=== PATIENT | male | born 1950 | race Hispanic/Latino ===

== ENCOUNTER 2023-02-10 05:47 | Day surgery (SDC) | payer BC ==
[2023-02-08 10:26] VITALS: BP 144/81
[2023-02-08 10:27] LABS: BASOPHILS % (AUTO) 0.7 % (0.0-5.0); EOSINOPHILS % (AUTO) 2.8 % (0.0-8.0); HEMATOCRIT 35.4 % (42-54); LYMPHOCYTES % (AUTO) 32.8 % (21.0-51.0); MEAN CORPUSCULAR HEMOGLOBIN 39.8 pg (27.0-33.0); MEAN CORPUSCULAR HGB CONC 36.4 g/dL (32.0-36.0); MEAN CORPUSCULAR VOLUME 109.3 fL (79-99); MONOCYTES % (AUTO) 9.9 % (3.0-13.0); NEUTROPHILS % (AUTO) 53.4 % (40.0-77.0); PLATELET COUNT (AUTO) 221 K/uL (130-400); RED BLOOD CELL COUNT(AUTO) 3.24 MIL/uL (4.50-6.20); RED CELL DISTRIBUTION WIDTH 14.1 % (11.0-15.5); WHITE BLOOD COUNT (AUTO) 5.7 K/uL (4.8-10.8)
[2023-02-08 10:44] LABS: ALBUMIN 3.8 g/dL (3.5-5.0); CARBON DIOXIDE 30 mmol/L (21-32); CHLORIDE 99 mmol/L (101-111); CREATININE 0.8 mg/dL (0.5-1.5); GLOMERULAR FILTR. RATE CALC 95 mL/min (>90); GLUCOSE,RANDOM 103 mg/dL (70-105); POTASSIUM 4.6 mmol/L (3.5-5.1); SODIUM SERUM 135 mmol/L (136-145); UREA NITROGEN, BLOOD 15 mg/dL (7-18)
[2023-02-08 10:48] LABS: CRP QUANTITATIVE < 2.00 mg/L (0.00-9.0)
[~2023-02-10] VITALS: Ht 177.8 cm; Wt 92.8 kg
[2023-02-10] VITALS (19 sets, daily range): BP systolic 130–147; BP diastolic 68–88
[~2023-02-10 05:47] MED LIST: CEPH250C3 PO; LEVO100C4 PO; MELO-106 PO
[2023-02-10] MEDS ORDERED: LACTATED RINGERS 1000ML 1,000 ML IV ONE (06:11)
[2023-02-10] MEDS ORDERED: CEFAZOLIN SODIUM 2 GM VIAL ONE (06:11)
[2023-02-10] MEDS ORDERED: BUPIVACAINE/PF 0.25% 30ML VIAL IJ ONE (06:43)
[2023-02-10] MEDS ORDERED: FAMOTIDINE 20MG VIAL IV ONE (06:47)
[2023-02-10] MEDS ORDERED: LIDOCAINE PF 100MG/5ML (2%) SYRINGE 5ML ONE (06:59)
[2023-02-10] MEDS ORDERED: GLYCOPYRROLATE 1 MG/5 ML SYRINGE ONE (06:59)
[2023-02-10] MEDS ORDERED: PROPOFOL 10 MG/ML 20ML VIAL IV ONE (06:59)
[2023-02-10] MEDS ORDERED: FENTANYL CITRATE PF 50 MCG/1 ML 5ML AMP IV ONE (07:00)
[2023-02-10] MEDS ORDERED: MIDAZOLAM HCL 1 MG/ML 2ML VIAL ONE (07:00)
[2023-02-10] MEDS ORDERED: ONDANSETRON 4MG INJ ONE (07:21)
[2023-02-10] MEDS ORDERED: ACET-2079 PO (08:16)
== END 2023-02-10 10:00 | disposition home or self-care (01) ==
LOC: DAH 05:47
PROVIDERS: ATTEND Student in an Organized Health Care Education/Training Program
DX: M65.332 Trigger finger, left middle finger (principal); Z20.822 Contact with and (suspected) exposure to COVID-19; E03.9 Hypothyroidism, unspecified; Z79.890 Hormone replacement therapy; Z79.899 Other long term (current) drug therapy
CPT/HCPCS: 82040; 80048; 85025; 84134; 86140; 87426; 36415; 26055; A4663; A4565; A4649; J7120; J3490 ×3; J3010; J2001; J2250; J2704; J2405; J0690; A6223; A5120; A4215; A4223; A4222; A4221

== ENCOUNTER 2023-06-09 05:55 | Day surgery (SDC) | payer OTHER ==
[2023-06-07 10:40] LABS: BASOPHILS # (AUTO) 0.03 K/uL (0.00-0.20); BASOPHILS % (AUTO) 0.4 % (0.0-5.0); EOSINOPHILS # (AUTO) 0.13 K/uL (0.00-0.70); EOSINOPHILS % (AUTO) 1.8 % (0.0-8.0); IMMATURE GRANULOCYTE ABSOLUTE 0.02 K/uL (0-1); LYMPHOCYTES # (AUTO) 1.7 K/uL (1.0-4.8); LYMPHOCYTES % (AUTO) 23.1 % (21.0-51.0); MEAN CORPUSCULAR HEMOGLOBIN 45.7 pg (27.0-33.0); MEAN CORPUSCULAR HGB CONC 39.4 g/dL (32.0-36.0); MEAN CORPUSCULAR VOLUME 115.9 fL (79-99); MONOCYTES # (AUTO) 0.6 K/uL (0.1-1.0); MONOCYTES % (AUTO) 8.1 % (3.0-13.0); NEUTROPHILS # (AUTO) 4.8 K/uL (1.8-7.7); NEUTROPHILS % (AUTO) 66.3 % (40.0-77.0); PLATELET COUNT (AUTO) 214 K/uL (130-400); RED BLOOD CELL COUNT(AUTO) 2.76 MIL/uL (4.50-6.20); RED CELL DISTRIBUTION WIDTH 14.2 % (11.0-15.5); WHITE BLOOD COUNT (AUTO) 7.2 K/uL (4.8-10.8)
[2023-06-07 10:53] LABS: ALBUMIN 3.8 g/dL (3.5-5.0); CREATININE 0.9 mg/dL (0.5-1.5); POTASSIUM 4.4 mmol/L (3.5-5.1)
[2023-06-07 16:46] VITALS: BP 153/70; PULSE 69; RESP 17
[2023-06-09] VITALS (14 sets, daily range): BP systolic 124–145; BP diastolic 55–76; PULSE 52–74; RESP 10–16
[~2023-06-09] VITALS: Ht 177.8 cm; Wt 97.1 kg
[~2023-06-09 05:55] MED LIST changes: +ACET-2079 PO
[2023-06-09] MEDS ORDERED: LACTATED RINGERS 1000ML 1,000 ML IV ONE (06:23)
[2023-06-09] MEDS ORDERED: CEFAZOLIN SODIUM 2 GM VIAL ONE (06:23)
[2023-06-09] MEDS ORDERED: CYCL-309 PO (06:36)
[2023-06-09] MEDS ORDERED: LIDOCAINE PF 100MG/5ML (2%) SYRINGE 5ML ONE (07:23)
[2023-06-09] MEDS ORDERED: MIDAZOLAM HCL 1 MG/ML 2ML VIAL ONE (07:24)
[2023-06-09] MEDS ORDERED: FENTANYL CITRATE PF 50 MCG/1 ML 2ML VIAL ONE (07:24)
[2023-06-09] MEDS ORDERED: PROPOFOL 10 MG/ML 20ML VIAL IV ONE (07:24)
[2023-06-09] MEDS ORDERED: ROCURONIUM 10MG/1ML SYR 10 MG/ML ML ONE (07:24)
[2023-06-09] MEDS ORDERED: ROPIVACAINE 0.5% 5MG/ML 30ML IJ ONE (07:28)
[2023-06-09] MEDS ORDERED: EPINEPHRINE PF 1MG (1:1,000) 1 MG/ML AMP ONE (07:34)
[2023-06-09] MEDS ORDERED: HYDR-4060 PO ×2 (08:06→17:28)
[2023-06-09] MEDS ORDERED: NEOSTIGMINE 5MG/5ML SYR IV ONE (08:20)
[2023-06-09] MEDS ORDERED: GLYCOPYRROLATE 1 MG/5 ML SYRINGE ONE (08:20)
[2023-06-09] MEDS ORDERED: ONDANSETRON 4MG INJ ONE (08:27)
[2023-06-09] MEDS ORDERED: DEXAMETHASONE SOD PHOSPHATE 10MG/ML 1ML VIAL ONE (08:27)
[2023-06-09] MEDS ORDERED: PHENYLEPHRINE HCL 10 MG/ML 1ML VIAL IV ONE (08:33)
[2023-06-09] MEDS ORDERED: EPINEPHRINE PF 1MG (1:1,000) 1 MG/ML AMP IVP ONE (08:45)
[2023-06-09] MEDS ORDERED: EPHEDRINE SULFATE 50 MG/ML AMPULE ONE (08:54)
== END 2023-06-09 12:45 | disposition home or self-care (01) ==
LOC: DAH 05:55
PROVIDERS: ATTEND Student in an Organized Health Care Education/Training Program
DX: S46.011A Strain of muscle(s) and tendon(s) of the rotator cuff of right shoulder, initial encounter (principal); M19.011 Primary osteoarthritis, right shoulder; M75.21 Bicipital tendinitis, right shoulder; M25.811 Other specified joint disorders, right shoulder; M67.211 Synovial hypertrophy, not elsewhere classified, right shoulder; E03.9 Hypothyroidism, unspecified; Z98.890 Other specified postprocedural states; Z79.899 Other long term (current) drug therapy; X50.0XXA Overexertion from strenuous movement or load, initial encounter; Y93.89 Activity, other specified; Y92.89 Other specified places as the place of occurrence of the external cause; Y99.0 Civilian activity done for income or pay; Z79.890 Hormone replacement therapy
CPT/HCPCS: 82040; 80048; 85025; 84134; 86140; 36415; 93005; 29827; 29826; 64415; A4663; J7030; A4565; A4452; J7120; J3010; J3490 ×2; J1100; J2710; J2001; J0171 ×2; J2250; J2704; J2405; J2795; J2371; J0690; A6223; A4649; C1713; A5120; A4215; A4223; A4222; A4221; A4600; 85007